=== PATIENT | male | born 1960 | race African-American/Black ===

== ENCOUNTER 2016-10-05 10:57 | Day surgery (SDC) | payer MEDICARE, OTHER ==
--- NOTE | ~2016-10-05 | EGD ---
EGD REPORT [facility] [address] [address] NAME: MEGAN MCKEON JR : 58 STATUS : [facility] PAT#: [id number] AGE: 56 ADM/REG DATE : 10/05/16 MR#: [id number] REPORT SERV DATE: 10/05/16 DICTATED BY: NETO JAIN DATE: 10/05/16 REPORT STATUS : Draft [facility]ANS[facility] BY: [facility] DATE: 10/05/16 Endoscopy Center Patient Name: Megan Mckeon Jr Date of : 1960 Attending MD: NETO JAIN MD Procedure Date No Time: 10/05/2016 Procedure: Upper GI endoscopy Indications: Heartburn, Suspected esophageal reflux, Early satiety, Nausea with vomiting Referring MD: NETO VINES, MEHRDAD ACOSTA III, MD, RADHA RAYO Medicines: as per anesthesia Complications: No immediate complications. Procedure: Pre-Anesthesia Assessment: - ASA Grade Assessment: IV - A patient with severe systemic disease that is a constant threat to life. After obtaining informed consent, the endoscope was passed under direct vision. Throughout the procedure, the patient's blood pressure, pulse, and oxygen saturations were monitored continuously. The GIF [id number] was introduced through the mouth, and advanced to the third part of duodenum. The upper GI endoscopy was accomplished without difficulty. The patient tolerated the procedure. Findings: The examined esophagus was normal. A small hiatus hernia was present. The examined duodenum was normal. Impression: - Normal esophagus. - Hiatus hernia. - Normal examined duodenum. Recommendation: - Follow an antireflux regimen. - Continue present medications. Procedure Code(s): --- Professional --- 59283, Esophagogastroduodenoscopy, flexible, transoral; diagnostic, including collection of specimen(s) by brushing or washing, when performed (separate procedure) Diagnosis Code(s): --- Professional --- K44.9, Diaphragmatic hernia without obstruction or gangrene EGD REPORT [address] [place]. [address] NAME: MEGAN MCKEON JR : 58 STATUS : [facility]#: [id number] AGE: 56 ADM/REG DATE : 10/05/16 MR#: [id number] REPORT SERV DATE: 10/05/16 DICTATED BY: NETO JAIN. DATE: 10/05/16 REPORT STATUS : Draft TRANSCRIBED BY: [employer] DATE: 10/05/16 R12, Heartburn R68.81, Early satiety R11.2, Nausea with vomiting, unspecified CPT copyright 2013 [employer]. All rights reserved. The codes documented in this report are preliminary and upon taste tester review may be revised to meet current compliance requirements. NETO JAIN MD 10/05/2016 1:24 PM This report has been signed electronically. Number of Addenda: 0 Note Initiated On: 10/05/2016 1:01 PM Scope Withdrawal Time 0 hours 0 minutes 0 seconds
--- NOTE | ~2016-10-05 | EGD ---
EGD REPORT [facility] [address] [address] NAME: MEGAN MCKEON JR : 58 STATUS : [facility] PAT#: [id number] AGE: 56 ADM/REG DATE : 10/05/16 MR#: [id number] REPORT SERV DATE: 10/05/16 DICTATED BY: NETO JAIN DATE: 10/05/16 REPORT STATUS : Draft TRANSCRIBED BY: [employer] DATE: 10/05/16 Endoscopy Center Patient Name: Megan Mckeon Jr Date of : 1960 Attending MD: NETO JAIN MD Procedure Date No Time: 10/05/2016 Procedure: Colonoscopy Indications: High risk colon cancer surveillance: Personal history of colonic polyps Referring MD: NETO VINES Medicines: as per anesthesia Complications: No immediate complications. Procedure: Pre-Anesthesia Assessment: - ASA Grade Assessment: IV - A patient with severe systemic disease that is a constant threat to life. After I obtained informed consent, the scope was passed under direct vision. Throughout the procedure, the patient's blood pressure, pulse, and oxygen saturations were monitored continuously. The PCF [id number] was introduced through the anus and advanced to the ileocolonic anastomosis. The colonoscopy was performed without difficulty. The patient tolerated the procedure. The quality of the bowel preparation was adequate to identify polyps. Findings: The perianal and digital rectal examinations were normal. There was evidence of a prior end-to-side ileo-colonic anastomosis in the transverse colon. This was patent. This was characterized by healthy appearing mucosa. A few small and large-mouthed diverticula were found in the sigmoid colon, in the descending colon and in the transverse colon. Impression: - Patent end-to-side ileo-colonic anastomosis. - Diverticulosis in the sigmoid colon, in the descending colon and in the transverse colon. Recommendation: - Repeat colonoscopy in 5 years for surveillance. Procedure Code(s): --- Professional --- 33798, Colonoscopy, flexible, proximal to splenic flexure; diagnostic, with or without collection of specimen(s) by brushing or washing, with or without colon decompression (separate procedure) EGD REPORT [facility] [address] [place], [place] [address]. [address] NAME: MEGAN MCKEON : 58 STATUS : [facility] PAT#: [id number] AGE: 56 ADM/REG DATE : 10/05/16 MR#: [id number] REPORT SERV DATE: 10/05/16 DICTATED BY: NETO JAIN DATE: 10/05/16 REPORT STATUS : Draft TRANSCRIBED BY: [employer] DATE: 10/05/16 Diagnosis Code(s): --- Professional --- Z98.0, Intestinal bypass and anastomosis status K57.30, Diverticulosis of large intestine without perforation or abscess without bleeding Z86.010, Personal history of colonic polyps CPT copyright 2013 [employer]. All rights reserved. The codes documented in this report are preliminary and upon pets salesperson review may be revised to meet current compliance requirements. NETO JAIN MD 10/05/2016 1:47 PM This report has been signed electronically. Number of Addenda: 0 Note Initiated On: 10/05/2016 1:03 PM Scope Withdrawal Time 0 hours 8 minutes 8 seconds [address] [facility] [place] [id number]
[~2016-10-05 10:57] MED LIST: *DENIES; *UNABLE3; AMOXIL500 MG PO; ARANESP IV; ASA5GR PO; ASCRIPTIN PO; AT25 PO; BIAXIN5 PO; CARDCD180 PO; CAT1 PO; CAT2 PO; COREG25 PO; DAILYVITE PO; DIALYSIS; DIALYVITE PO; HECTOROL IV; HECTOROL4 MCG/2 ML IV; LANTUS SC; LIDOVISCUD; LONITEN2.5 PO; LOTE20 PO; LOTE40 PO; MOBIC15 MG PO; NEPHRO PO; NEUR100 PO; NEUR300 PO; NORV5 PO; OXYCOD PO; PR25 PO; PRAV10 PO; PRAVAC PO; PREV15 PO; PROCRIT IV; REG5 PO; RENA-VITE PO; TRIAMCINOLONE C80 GM TOP; TUMSROLL PO; VENOFER IV; VOLTAREN 1% TD; VOLTAREN1 % TOP; ZOFRAN4 PO; ZOFRAN8 PO; [UNRECOGNIZED DRUG - REMARK] TOP
[2016-10-05 12:22] LABS: BUN (BLOOD UREA NITROGEN) 21 MG/DL (6-23); CALCIUM, SERUM 8.9 MG/DL (8.5-10.4); CHLORIDE, SERUM 104 MMOL/L (96-112); CO2 (CARBON DIOXIDE) 27 MMOL/L (24-34); CREATININE 6.66 MG/DL (0.70-1.30); GFR AFRICAN AMERICAN 10 ML/MIN (>=60); GFR NON AFRICAN AMERICAN 8 ML/MIN (>=60); GLUCOSE, SERUM 77 MG/DL (60-99); POTASSIUM, SERUM 4.2 MMOL/L (3.5-5.3); SODIUM, SERUM 141 MMOL/L (135-148)
== END 2016-10-05 23:59 | disposition home or self-care (01) ==
LOC: DMU 10:57
PROVIDERS: Anesthesiology; Internal Medicine Gastroenterology
PROC: 0DJD8ZZ Inspection of Lower Intestinal Tract, Via Natural or Artificial Opening Endoscopic (ICD-10-PCS; principal; 2016-10-05 12:30)
PROC: 0DJ08ZZ Inspection of Upper Intestinal Tract, Via Natural or Artificial Opening Endoscopic (ICD-10-PCS; 2016-10-05 12:30)
DX: Z12.11 Encounter for screening for malignant neoplasm of colon (principal); K57.30 Diverticulosis of large intestine without perforation or abscess without bleeding; K44.9 Diaphragmatic hernia without obstruction or gangrene; N18.6 End stage renal disease; I12.0 Hypertensive chronic kidney disease with stage 5 chronic kidney disease or end stage renal disease; E11.9 Type 2 diabetes mellitus without complications; H35.00 Unspecified background retinopathy; D64.9 Anemia, unspecified; E21.3 Hyperparathyroidism, unspecified; Z86.010 Personal history of colon polyps; Z98.0 Intestinal bypass and anastomosis status
CPT/HCPCS: 43235; G0105; 80048; J0360